=== PATIENT | female | born 1985 | race Caucasian/White ===

== ENCOUNTER → 2017-10-08 | Outpatient (CLI) | payer MEDICARE, OTHER ==
[~2017-10-08] MED LIST: LIDOCAINE 2%/EPI 1:100,000 20 ML VIAL.; MIDAZOLAM HCL/PF 2 MG/2 ML VIAL.; fentaNYL PF VIAL 100 MCG/2 ML VIAL
[2017-10-08 07:26] LABS: HEMOGLOBIN 13.3 g/dL (12.0-15.5); MEAN CORPUSCULAR HEMOGLOBIN 30 pg (25-35); MEAN CORPUSCULAR HGB CONC 34 g/dL (31-37); MEAN CORPUSCULAR VOLUME 89 fL (79-100); PLATELET COUNT 300 x10^3/uL (140-400); RED BLOOD COUNT 4.38 x10^6/uL (3.50-5.40); RED CELL DISTRIBUTION WIDTH 13.1 % (11.5-14.5); WHITE BLOOD COUNT 9.3 x10^3/uL (4.0-11.0)
[2017-10-08 07:39] LABS: PROTHROMBIN TIME PATIENT 12.5 SEC (11.7-14.0)
[2017-10-08] MEDS: MIDAZOLAM HCL/PF 2 MG/2 ML VIAL. IV (08:29)
[2017-10-08] MEDS: LIDOCAINE 2%/EPI 1:100,000 20 ML VIAL. IJ (08:29)
[2017-10-08] MEDS: fentaNYL PF VIAL 100 MCG/2 ML VIAL IV (08:30)
== END | disposition home or self-care (01) ==
LOC: CCL 06:35
DX: Z45.09 Encounter for adjustment and management of other cardiac device (principal); Z86.73 Personal history of transient ischemic attack (TIA), and cerebral infarction without residual deficits; I27.20 Pulmonary hypertension, unspecified; I08.1 Rheumatic disorders of both mitral and tricuspid valves; F41.9 Anxiety disorder, unspecified; F32.9 Major depressive disorder, single episode, unspecified; Z98.890 Other specified postprocedural states; Z88.5 Allergy status to narcotic agent
CPT/HCPCS: 33284; 36415; 85027; 85610; 93306; 99152; 99153; J2250; J3010; J3490

== ENCOUNTER → 2020-01-09 | Outpatient (CLI) | payer MEDICARE, OTHER ==
[2017-10-08 09:15] VITALS: BP 143/94
[~2020-01-09] MED LIST changes: +ASPI-886 PO; -LIDOCAINE 2%/EPI 1:100,000 20 ML VIAL.; -MIDAZOLAM HCL/PF 2 MG/2 ML VIAL.; +MULT-445 PO; -fentaNYL PF VIAL 100 MCG/2 ML VIAL
--- NOTE | 2020-01-12 11:20 | CARD ---
MR#: [id number] Date of Study: 01/09/2020 Ordering Physician: MARKELL LONG, Referring Physician: MRAKELL LONG, Tech: Renuka Michael APPROVED REPORT EXAM: Two-dimensional and M-mode echocardiogram with Doppler and color Doppler. Other Information Quality : AverageHR: 82bpm INDICATION CVA/TIA 2D DIMENSIONS RVDd3.0 (2.9-3.5cm)Left Atrium(2D)2.6 (1.6-4.0cm) IVSd0.8 (0.7-1.1cm)Aortic Root(2D)3.3 (2.0-3.7cm) LVDd5.3 (3.9-5.9cm)LVOT Diameter2.1 (1.8-2.4cm) PWd0.9 (0.7-1.1cm)LVDs3.8 (2.5-4.0cm) FS (%) 28.3 %SV74.8 ml LVEF(%)54.3 (>50%) Aortic Valve AoV Peak Yvon.138.9cm/sAoV VTI33.8cm AO Peak GR.7.7mmHgLVOT Peak Yvon.131.9cm/s AO Mean GR.5mmHgAVA (VMAX)3.35cm2 Mitral Valve MV E Qzqatxsn780.7cm/sMV E Peak Gr.5mmHg MV DECEL [id number] A Toweptav784.0cm/s MV E Mean Gr.3mmHgE/A Ratio1.1 Pulmonary Valve PV Peak Nffhkfnh17.1cm/s Tricuspid Valve TR P. Lyjfprpr701mq/sRAP UVCZERZR7dqFp TR Peak Gr.63ryEnFTQN49ztSi Pulmonary Vein S1 Bjfovkqa15.9cm/sD2 Fdiflklp42.5cm/s PVa rituqnvc685eujm LEFT VENTRICLE The left ventricle is normal size. There is normal left ventricular wall thickness. The left ventricu lar systolic function is low normal at 50% Wall motion consistent with conduction abnormality. Tissue Doppler imaging reveals moderate left ventricular diastolic dysfunction. RIGHT VENTRICLE The right ventricle is normal size. There is normal right ventricular wall thickness. The right ventr icular systolic function is normal. ATRIA The left atrium size is normal. The right atrium size is normal. Atrial septum not well visualized. AORTIC VALVE The aortic valve is normal in structure and function. Doppler and Color Flow revealed no significant aortic regurgitation. There is no significant aortic valvular stenosis. Calculated aortic valve area is 3.4 cm2 with maximum pressure gradient of 8 mmHg and mean pressure gradient of 5 mmHg. MITRAL VALVE The mitral valve is normal in structure and function. There is no evidence of mitral valve prolapse. There is no mitral valve stenosis. Doppler and Color-flow revealed trace mitral regurgitation. TRICUSPID VALVE The tricuspid valve is normal in structure and function. Doppler and Color Flow revealed trace tricus pid regurgitation with an estimated PAP of 28 mmHg. There is no tricuspid valve stenosis. PULMONIC VALVE The pulmonary valve is normal in structure and function. Doppler and Color Flow revealed trace pulmon ic valvular regurgitation. There is no pulmonic valvular stenosis. GREAT VESSELS The aortic root is normal in size. The IVC was not visualized. PERICARDIAL EFFUSION There is no evidence of significant pericardial effusion. Critical Notification Critical Value: No <Conclusion> The left ventricular systolic function is low normal at 50% Wall motion consistent with conduction abnormality. Tissue Doppler imaging reveals moderate left ventricular diastolic dysfunction. Agitated saline study not performed. Technically difficult study Signed by : Karan Mina, Electronically Approved : 01/12/2020 11:19:53
== END | disposition home or self-care (01) ==
LOC: ECHO 13:03
PROVIDERS: ATTEND Internal Medicine Cardiovascular Disease
DX: I63.89 Other cerebral infarction (principal)
CPT/HCPCS: 93306

== ENCOUNTER → 2021-01-12 | Outpatient (CLI) | payer MEDICARE, OTHER ==
[2017-10-08 09:15] VITALS: BP 143/94
--- NOTE | 2021-01-12 16:08 | CARD ---
MR#: [id number] Date of Study: 01/12/2021 Ordering Physician: MARKELL LONG, Referring Physician: MARKELL LONG, Tech: Renuka Michael, [facility] APPROVED REPORT EXAM: Two-dimensional and M-mode echocardiogram with Doppler and color Doppler. Other Information Quality : AverageHR: 80bpm INDICATION Cryptogenic Stroke 2D DIMENSIONS Left Atrium(2D)2.7 (1.6-4.0cm)IVSd1.1 (0.7-1.1cm) Aortic Root(2D)3.2 (2.0-3.7cm)LVDd5.0 (3.9-5.9cm) LVOT Diameter2.1 (1.8-2.4cm)PWd1.0 (0.7-1.1cm) LVDs3.9 (2.5-4.0cm)FS (%) 22.4 % SV53.4 ml Aortic Valve AoV Peak Yvon.149.7cm/sAoV VTI32.1cm AO Peak GR.9.0mmHgLVOT Peak Yvon.100.7cm/s LVOT VTI 21.84cmAO Mean GR.5mmHg LAKE (VMAX)1.10lg6PRT (VTI)2.28cm2 Mitral Valve MV E Rxehjibl633.8cm/sMV DECEL WPIC113bk MV A Fngbdjpq05.3cm/sMV EZV74wg E/A Ratio1.4MVA (PHT)2.98cm2 TDI E/Lateral E'8.8E/Medial E'1.8 Pulmonary Valve PV Peak Udozoffb751.9cm/sPV Peak Grad.4mmHg Tricuspid Valve TR P. Qmxieapf884os/sRAP QUROZBTZ8whJs TR Peak Gr.16caSeUAAS34bvVd Pulmonary Vein S1 Gjobedss79.8cm/sD2 Yjlvditu55.1cm/s PVa [id number] LEFT VENTRICLE The Left Ventricle is borderline dilated. There is normal left ventricular wall thickness. The systol ic function is mildly impaired. The Ejection Fraction is 40-45%. There is global hypokinesis of the l eft ventricle. Tissue Doppler imaging reveals moderate left ventricular diastolic dysfunction. RIGHT VENTRICLE The right ventricle is normal size. There is normal right ventricular wall thickness. The right ventr icular systolic function is normal. ATRIA The left atrium size is normal. The right atrium size is normal. The interatrial septum is intact wit h no evidence for an atrial septal defect or patent foramen ovale as noted on 2-D or Doppler imaging. AORTIC VALVE The aortic valve is normal in structure and function. Doppler and Color Flow revealed trace aortic re gurgitation. There is no significant aortic valvular stenosis. Calculated aortic valve area is 3.11 c m2 with maximum pressure gradient of 11 mmHg and mean pressure gradient of 6 mmHg. MITRAL VALVE The mitral valve is normal in structure and function. There is no evidence of mitral valve prolapse. There is no mitral valve stenosis. Doppler and Color-flow revealed trace mitral regurgitation. TRICUSPID VALVE The tricuspid valve is normal in structure and function. Doppler and Color Flow revealed trace tricus pid regurgitation with an estimated PAP of 29 mmHg. There is no tricuspid valve stenosis. PULMONIC VALVE The pulmonic valve is not well visualized. Doppler and Color Flow revealed trace pulmonic valvular re gurgitation. GREAT VESSELS The aortic root is normal in size. The IVC is normal in size and collapses >50% with inspiration. PERICARDIAL EFFUSION There is no evidence of significant pericardial effusion. Critical Notification Critical Value: No <Conclusion> The Left Ventricle is borderline dilated. The systolic function is mildly impaired. The Ejection Fraction is 40-45%. There is global hypokinesis of the left ventricle. Doppler and Color Flow revealed trace aortic regurgitation. There is no significant aortic valvular stenosis. Doppler and Color-flow revealed trace mitral regurgitation. Doppler and Color Flow revealed trace tricuspid regurgitation with an estimated PAP of 29 mmHg. Signed by : Gold Underwood MD Electronically Approved : 01/12/2021 16:07:46
== END ==
LOC: ECHO 13:48
PROVIDERS: ATTEND Internal Medicine Cardiovascular Disease
DX: I35.1 Nonrheumatic aortic (valve) insufficiency (principal); I63.9 Cerebral infarction, unspecified
CPT/HCPCS: 93306